=== PATIENT | female | born 1940 | race Two or more races ===

== ENCOUNTER 2017-10-26 10:53 | Outpatient (CLI) | payer OTHER | END 2017-10-26 10:58 | disposition home or self-care (01) | LOC: RAD 501 10:53 | DX: J44.1 Chronic obstructive pulmonary disease with (acute) exacerbation (principal); Z72.0 Tobacco use ==

== ENCOUNTER 2018-04-29 10:28 | Outpatient (CLI) | payer OTHER | END 2018-04-29 10:36 | disposition home or self-care (01) | LOC: RAD 501 10:28 | DX: J44.1 Chronic obstructive pulmonary disease with (acute) exacerbation (principal); M41.80 Other forms of scoliosis, site unspecified; F17.200 Nicotine dependence, unspecified, uncomplicated ==

== ENCOUNTER 2018-08-26 11:06 | Outpatient (CLI) | payer OTHER | END 2018-08-26 11:46 | disposition home or self-care (01) | LOC: SONOGRAMA 11:06 → MAMO-SONO 09-01 10:15 | DX: E04.2 Nontoxic multinodular goiter (principal) ==